=== PATIENT | female | born 1975 | race Caucasian/White ===

== ENCOUNTER 2018-11-26 08:17 | Outpatient (CLI) | payer OTHER ==
[2018-11-26 08:24] LABS: MEAN CORPUSCULAR HEMOGLOBIN 27.6 pg (28.0-34.0)
[2018-11-26 08:59] LABS: SEGMENTED NEUTROPHILS % 43 % (39-79)
[2018-11-26 09:00] LABS: ANISOCYTOSIS 2+ (NEGATIVE); MONOCYTES % 7 % (0-11)
== END 2018-11-26 08:19 ==
LOC: LAB 08:17
PROVIDERS: ATTEND Family Medicine
DX: D64.9 Anemia, unspecified (principal)
CPT/HCPCS: 36415; 82607; 82728; 82746; 83540; 83550; 85025; 85045; 86870; 86885; 86900; 86905; 86920